=== PATIENT | male | born 1975 | race Caucasian/White ===

== ENCOUNTER → 2019-03-27 | Outpatient (CLI) | payer OTHER ==
[~2019-03-27] MED LIST: CYMBALTA60 MG PO; HYDROCOD-HOMAT 55 ML PO; HYDROCODON-ACE1 EAC8 PO; NAPROSYN500 MG PO; PREDNISONE 5 MG5 M1 PO; RELAFEN750 MG PO
== END ==
LOC: MRI 13:28
DX: S86.811A Strain of other muscle(s) and tendon(s) at lower leg level, right leg, initial encounter (principal); M25.461 Effusion, right knee; M71.21 Synovial cyst of popliteal space [Baker], right knee; X58.XXXA Exposure to other specified factors, initial encounter; Y93.89 Activity, other specified; Y92.89 Other specified places as the place of occurrence of the external cause; Y99.8 Other external cause status